=== PATIENT | female | born 1965 | race Caucasian/White ===

== ENCOUNTER 2023-07-23 07:53 | Day surgery (SDC) | payer MEDICAID ==
[~2023-07-23 07:53] MED LIST: Bupivacaine 0.5%/EPINEPHrine 1:200,000 50 ML MDV ONE
[2023-07-23] MEDS ORDERED: Acetaminophen 500 MG Tab PO ONE (08:00)
[2023-07-23] MEDS ORDERED: Lactated Ringers 1,000 ML IV SCH (08:30)
[2023-07-23] MEDS ORDERED: ceFAZolin 2 GM in Premix Bag 1 BAG IV ONE (08:30)
[2023-07-23] MEDS ORDERED: Glycopyrrolate 0.2 MG/ML 5 ML MDV ONE (09:36)
[2023-07-23] MEDS ORDERED: Rocuronium 50 MG/5 ML Vial ONE (09:36)
[2023-07-23] MEDS ORDERED: Ondansetron 4 MG/2 ML SDV ONE (09:36)
[2023-07-23] MEDS ORDERED: Propofol 200 MG/20 ML SDV ONE (09:36)
[2023-07-23] MEDS ORDERED: Succinylcholine 200 MG/10 ML MDV ONE (09:36)
[2023-07-23] MEDS ORDERED: Neostigmine Methylsulfate 1 MG/ML 5 ML Syringe ONE (09:36)
[2023-07-23] MEDS ORDERED: fentaNYL 100 MCG/2 ML SDV ONE ×2 (09:36→11:21)
[2023-07-23] MEDS ORDERED: Dexamethasone 4 MG/ML SDV ONE (09:36)
[2023-07-23] MEDS ORDERED: ePHEDrine 50 MG/ML SDV ONE (10:39)
[2023-07-23] MEDS ORDERED: Sodium Chloride 0.9% 10 ML ONE (10:39)
[2023-07-23] MEDS ORDERED: Lactated Ringers 1,000 ML ONE (11:39)
[2023-07-23] MEDS ORDERED: Bupivacaine 0.5% 50 ML MDV ONE (11:43)
[2023-07-23 13:08] VITALS: PULSE 76
[2023-07-23 13:35] VITALS: BP 135/76
== END 2023-07-23 13:45 | disposition home or self-care (01) ==
LOC: JP.SDS 07:53
PROVIDERS: ATTEND Student in an Organized Health Care Education/Training Program
DX: N60.11 Diffuse cystic mastopathy of right breast (principal); N60.21 Fibroadenosis of right breast; N60.91 Unspecified benign mammary dysplasia of right breast; J45.909 Unspecified asthma, uncomplicated; I10 Essential (primary) hypertension; E03.9 Hypothyroidism, unspecified; E78.5 Hyperlipidemia, unspecified; G43.009 Migraine without aura, not intractable, without status migrainosus; G47.33 Obstructive sleep apnea (adult) (pediatric); E66.01 Morbid (severe) obesity due to excess calories; Z88.8 Allergy status to other drugs, medicaments and biological substances; Z80.3 Family history of malignant neoplasm of breast; Z86.79 Personal history of other diseases of the circulatory system; Z68.1 Body mass index [BMI] 19.9 or less, adult
CPT/HCPCS: 19125; 76098; 88307; 88342; 88360; A9270; J0330; J0690; J1100; J2405; J2704; J2710; J3010; J3490; J7120